=== PATIENT | female | born 1960 | race Caucasian/White ===

== ENCOUNTER → 2017-12-20 | Outpatient (CLI) | payer BC | END | disposition home or self-care (01) | LOC: KCIC US 07:39 | DX: K76.0 Fatty (change of) liver, not elsewhere classified (principal); R16.0 Hepatomegaly, not elsewhere classified | CPT/HCPCS: 76700; 76857 ==

== ENCOUNTER → 2019-06-23 | Outpatient (CLI) | payer BC ==
--- NOTE | 2019-06-23 10:16 | KCIC ---
Bone Densitometry History: Bone mineral density assessment Findings: Bone Densitometry was performed with dual photon absorption of the lumbar spine and proximal femurs. Lumbar Spine: Bone density is 0.735 g/cm2 for L1-L4. T-score is -2.8. Z-score is -1.5. Left femoral neck: Bone density is 0.840 g/cm2. T-score is -0.8. Z-score is 0. IMPRESSION: Bone mineral density loss involving the lumbar spine of 30 percent from L1 to L4. Considering T score is -2.8, interval follow-up in 12-18 months is recommended to assess stability if there is a change in therapy. World Health Organization definition of osteoporosis and osteopenia for women: normal equals T score at or above -1.0 standard deviations; osteopenia equals T score between -1.0 and -2.5 standard deviations; osteoporosis equals T score at or below -2.5 standard deviations. Electronically signed by: Lars Gomez MD (06/23/2019 10:13 AM) [facility]
--- NOTE | 2019-06-23 10:27 | KCIC ---
Examination: ABDOMEN LTD History: Elevated liver function enzymes Comparison/Correlation: 12/20/2017 abdominal ultrasound exam Findings: Limited right upper quadrant ultrasound exam was performed. Fatty infiltration of the liver is present. Common bile duct diameter is 1.2 mm. Proximal pancreas is normal. Distal pancreas is obscured by bowel gas. Gallbladder is normal with no cholelithiasis or findings of cholecystitis. Portal venous flow is unremarkable. Hepatic veins are unremarkable. Inferior vena cava and visualized abdominal aorta are unremarkable for the patient's age. No right hydronephrosis. Longitudinal measurement of the right kidney is 12.3 cm. Normal right renal cortical thickness and echotexture. Impression: Fatty infiltration of the liver. Electronically signed by: Lars Gomez MD (06/23/2019 10:24 AM) [facility]
--- NOTE | 2019-06-23 16:33 | KCIC ---
Bilateral digital screening mammograms with 3-D tomosynthesis: Reason for examination: Routine screening. Comparison is made to previous study dated 09/11/2011. Bilateral mammograms in CC and oblique projections were obtained with 2-D imaging and 3-D tomosynthesis imaging on a Siemens Inspiration unit and reviewed on the workstation. Interpretation was made with the benefit of CAD. The skin and nipples show no abnormalities. No abnormal axillary lymph nodes are seen. The breast parenchyma is heterogeneously dense. (Breast density: Category C.) There are no dominant masses, suspicious calcifications or architectural distortion. Impression: No evidence of malignancy. Recommend routine screening. Your patient's mammogram demonstrates that she has dense breast tissue (breast density category C or D), which could hide abnormalities, and if she has other risk factors for breast cancer that have been identified, she might benefit from supplemental screening tests that may be suggested by you as her ordering physician. Dense breast tissue, in and of itself, is a relatively common condition. Therefore, this information is not provided to cause undue concern, but rather to raise your awareness and to promote discussion with your patient regarding the presence of other risk factors, in addition to dense breast tissue. Your patient's mammography results will be sent to her. BI-RAD Category 1: Negative. "Our facility is accredited by the [employer] Mammography Program." This patient's information has been entered into a reminder system for the patient to be notified with the results of her examination and a target date for the next mammogram. Electronically signed by: Yesica Romero MD (06/23/2019 4:30 PM) [id number]
== END | disposition home or self-care (01) ==
LOC: KCIC US 07:57
PROVIDERS: ATTEND Family Medicine
DX: Z12.31 Encounter for screening mammogram for malignant neoplasm of breast (principal); Z13.820 Encounter for screening for osteoporosis; K76.0 Fatty (change of) liver, not elsewhere classified; R94.5 Abnormal results of liver function studies; E11.9 Type 2 diabetes mellitus without complications; Z78.0 Asymptomatic menopausal state
CPT/HCPCS: 76705; 77063; 77067; 77080